=== PATIENT | female | born 1980 | race Two or more races ===

== ENCOUNTER 2020-10-27 01:44 | Emergency (ER) | payer OTHER ==
[~2020-10-27] VITALS: Ht 162.6 cm; Wt 68.0 kg
--- NOTE | 2020-10-27 01:45 | NUR ---
PT AAOX4. AMBULATORY WITH STEADY GAIT. BIBSELF C/O VAGINAL BLEEDING X2 HRS. PT STATED LMP X1 WEEK AGO. NO ACUTE DISTRESS NOTED. PT PLACED IN GOWN, ON MONITOR, AND PULSE OX IN BED 16. AT BEDSIDE FOR EVAL. AWIAITNG ORDERS.
--- NOTE | 2020-10-27 02:27 | NUR ---
LINE ESTABLISHED RH 18G, BLOOD WORK COLLECTED, SENT TO LAB.
[2020-10-27] MEDS ORDERED: IV NS 0.9% 1,000 ML BAG IV ONE (02:30)
[2020-10-27 02:33] LABS: BASOPHILS # (AUTO) 0.1 /CMM (0.0-0.2); BASOPHILS % (AUTO) 0.8 % (0.0-2.0); EOSINOPHILS % (AUTO) 1.3 % (0.0-6.0); HEMATOCRIT 37 % (33-45); HEMOGLOBIN 12.4 g/dL (11.5-14.8); LYMPHOCYTES # (AUTO) 2.4 /CMM (0.8-4.8); LYMPHOCYTES % (AUTO) 30.6 % (20.0-44.0); MEAN CORPUSCULAR HGB CONC 33 g/dl (31.0-36.0); MEAN CORPUSCULAR VOLUME 78 fL (82-100); MONOCYTES # (AUTO) 0.5 /CMM (0.1-1.30); MONOCYTES % (AUTO) 6.4 % (2.0-12.0); NEUTROPHILS # (AUTO) 4.8 /CMM (1.8-8.9); NEUTROPHILS % (AUTO) 60.9 % (43.0-81.0); PLATELET COUNT (AUTO) 362 /CMM (150-450); RED BLOOD CELL COUNT(AUTO) 4.75 MIL/uL (4.0-5.2); WHITE BLOOD COUNT (AUTO) 7.9 K/uL (4.3-11.0)
[2020-10-27 03:03] LABS: CALCIUM, SERUM 9.1 mg/dL (8.5-10.1); CREATININE 0.7 mg/dL (0.6-1.3); POTASSIUM 3.8 mmol/L (3.5-5.1)
[2020-10-27 03:15] LABS: BILIRUBIN,DIRECT 0.1 mg/dL (0.0-0.2); BILIRUBIN,TOTAL 0.2 mg/dL (0.2-1.0)
[2020-10-27] MEDS ORDERED: ESTR0.3T3 PO (04:09)
--- NOTE | 2020-10-27 04:20 | NUR ---
IV removed. Catheter intact and site benign. Pressure and 4x4 applied to site. No bleeding noted.
--- NOTE | 2020-10-27 04:20 | NUR ---
Patient discharged to home in stable condition. Written and verbal after care instructions given. Patient verbalizes understanding of instruction and RX. Pt ambulated out of ED.
[2020-10-27 04:21] VITALS: BP 121/76
== END 2020-10-27 04:22 | disposition home or self-care (01) ==
LOC: ER 01:49
DX: N92.1 Excessive and frequent menstruation with irregular cycle (principal); Z79.899 Other long term (current) drug therapy
CPT/HCPCS: 36415; 76856; 80048; 80076; 84702; 85025; 85730; 96360; 99284; J7030